=== PATIENT | female | born 1995 | race American Indian/Alaskan Native ===

== ENCOUNTER 2020-06-09 07:15 | Day surgery (SDC) | payer OTHER ==
--- NOTE | 2020-06-02 13:18 | History and Physical Report ---
History of Present Illness Date of examination: 06/02/20 Date of admission: 06/09/2020 Chief complaint: LEEP for moderate dysplasia History of present illness: 24 yo with known LSIL pap with subsequent SHIVANI-2/HSIL endo/ectocervical biopsies presenting for definitive surgical management via Loop electrosurgical excision procedure. Past History Past Surgical History: other (back surgery, elective ) IN HOME [employer] History: herpes Family/Genetic History: none Social history: no significant social history - Obstetrical History : 3 Hx # Term Pregnancies: 1 Spontaneous Abortions: 2 Number of Living Children: 1 Medications and Allergies Allergies Allergy/AdvReac Type Severity Reaction Status Date / Time strawberry AdvReac Intermediate Rash Verified 06/02/20 13:25 Home Medications Medication Instructions Recorded Confirmed Last Taken Type No Known Home Medications [No 06/02/20 06/02/20 Unknown History Reported Home Medications] Review of Systems All systems: negative (expect HPI) - Physical Exam Abdomen: Positive: normal appearance, normal bowel sounds Results All other labs normal. Assessment and Plan - Patient Problems (1) SHIVANI II (cervical intraepithelial neoplasia II) Current Visit: No Status: Acute Plan to address problem: To OR for loop electrosurgical excision procedure. Questions solicited and answered. Consented in the chart.
[~2020-06-09 07:15] MED LIST: BACTERIOSTATIC SODIUM CHLORIDE 0.9% 30 ML VIAL INFILTRATI ONE; LACTATED RINGERS 1,000 ML IV SCH; MIDAZOLAM 2 MG/2 ML INJ IV NR; ceFAZolin/Water 2 GM/20 ML 2 GM/20 ML SYRINGE IV NR
[2020-06-09] MEDS ORDERED: fentaNYL 100 MCG/2 ML INJ IV PRN (08:08)
[2020-06-09] MEDS ORDERED: KETOROLAC 30 MG/1 ML INJ IV PRN (08:08)
[2020-06-09] MEDS ORDERED: ONDANSETRON 4 MG/2 ML INJ IV PRN (08:08)
--- NOTE | 2020-06-09 08:09 | Anesthesia Consultation ---
Anesthesia Consult and Med Hx Date of service: 06/09/20 - Airway Anesthetic Teeth Evaluation: Good ROM Head & Neck: Adequate Mental/Hyoid Distance: Adequate Mallampati Class: Class I Intubation Access Assessment: Good - Pulmonary Exam CTA: Yes - Cardiac Exam Cardiac Exam: RRR - Pre-Operative Health Status ASA Pre-Surgery Classification: ASA1 Proposed Anesthetic Plan: General - Pulmonary Hx Smoking: No Hx Respiratory Symptoms: No - Cardiovascular System Hx Hypertension: No - Central Nervous System CVA: No - Gastrointestinal Hx Gastroesophageal Reflux Disease: No - Endocrine Hx Renal Disease: No Hx Liver Disease: No Hx Insulin Dependent Diabetes: No Hx Non-Insulin Dependent Diabetes: No Hx Thyroid Disease: No - Other Systems Hx Obesity: Yes (BMI 32) - Additional Comments Anesthesia Medical History Comments: No hx anesthetic complications.
--- NOTE | 2020-06-09 08:09 | Anesthesia Day of Surgery ---
Anesthesia Day of Surgery - Day of Surgery Patient Examined: Yes Patient H&P Reviewed: Yes Patient is NPO: Yes
[2020-06-09] MEDS ORDERED: POTASSIUM IODIDE/IODINE (LUGOLS) 30 ML TP ONE ×2 (08:39→09:37)
[2020-06-09] MEDS ORDERED: FERRIC SUBSULFATE TOPICAL SOLN 8 ML TP ONE ×2 (08:39→09:39)
[2020-06-09 08:48] LABS: Hematocrit 41.1 % (30.3-42.9); Hemoglobin 14.7 gm/dl (10.1-14.3); Mean Corpuscular HGB Conc 36 % (30-34); Mean Corpuscular Volume 92 fl (79-97); Platelet Count 314 K/mm3 (140-440); Red Blood Count 4.45 M/mm3 (3.65-5.03); Red Cell Distribution Width 13.2 % (13.2-15.2)
[2020-06-09] MEDS ORDERED: propofoL 200 MG/20 ML VIAL IV ONE (09:02)
[2020-06-09] MEDS ORDERED: ONDANSETRON 4 MG/2 ML INJ ONE (09:07)
[2020-06-09] MEDS ORDERED: fentaNYL 100 MCG/2 ML INJ ONE (09:07)
[2020-06-09] MEDS ORDERED: KETOROLAC 30 MG/1 ML INJ ONE (09:07)
[2020-06-09] MEDS ORDERED: dexAMETHasone 20 MG/5 ML VIAL ONE (09:07)
[2020-06-09] MEDS ORDERED: SODIUM CHLORIDE 0.9% IRR 1,500 ML BOTTLE IR ONE (09:37)
--- NOTE | 2020-06-09 09:56 | Procedure Note ---
Date of procedure: 06/09/20 Pre-op diagnosis: SHIVANI 2/moderate cervical dysplasia Post-op diagnosis: same Procedure: Preoperative diagnosis: Biopsy-proven cervical intraepithelial neoplasia (SHIVANI) 2 Postop postoperative diagnosis: Same Operation performed: 1. Exam under anesthesia 2. Loop electrosurgical excision procedure Surgeon: Catalina Becerra MD Estimated blood loss 25cc Intraoperative IV fluids not recorded Urine output 25cc Pathology specimens: 1. Loop left surgical excision procedure (LEEP) biopsy 2. LEEP Top-Hat Complications: none Disposition and condition: To the PACU in stable condition then discharged home Findings: 1. Small anteverted mobile uterus without any adnexal masses on EUA 2. Grossly normal-appearing cervix Statement medical necessity: This is a 24-year-old G 3 P 1021 patient, with a history of LSIL pap smear followed by suspected satisfactory colposcopy and biopsy proven CIN2. The procedural risk, benefits, indications and alternatives were thoroughly reviewed patient and she desired to proceed with surgical management. Description of operation: After obtaining informed consent the patient was taken to the operating room where satisfactory general endotracheal anesthesia was established. The patient was placed in the standard lithotomy position using candycane stirrups, ensuring proper positioning and cushioning to avoid injury. Exam under anesthesia was performed with the findings noted above. Straight catheterization of the bladder was performed. Patient was prepped and draped in the usual sterile fashion. Coated sidewall retractors were inserted into the anterior and posterior vaginal fornix to assist with visualization of the cervix. The cervix and upper vagina were coated with the Lugol's iodine and inspected for nonstaining areas. The entire transformation zone was visualized and there was a small circumferential nonstaining area around the cervical os. A LEEP was completed with a 20x12 mm loop electrode. A LEEP Top-Hat was performed with a 10x10 mm loop electrode. All specimens were sent to pathology. The biopsy site was rendered hemostatic with Bovie electrocautery with a 5 mm electrosurgical ball electrode and Monsel's solution was applied to the excisional base. The retractors were removed. The patient was returned to dorsal supine position. The patient tolerated procedure well, was extubated without difficulty and transferred to recovery in good condition. Sponge, needle and instrument counts are correct x2. There is no surgical or anesthetic complications. Anesthesia: GETA Surgeon: CATALINA BECERRA JR Estimated blood loss: minimal Urine output: 25 Pathology: list (1. LEEP, 2. top hat) Specimen disposition: to lab Condition: stable Disposition: same day
[2020-06-09] MEDS ORDERED: IBUPROFEN 600 MG TAB PO PRN (10:00)
[2020-06-09] MEDS ORDERED: oxyCODONE /ACETAMINOPHEN 5-325MG TAB PO PRN (10:00)
[2020-06-09 10:56] VITALS: BP 113/75
--- NOTE | 2020-06-09 11:27 | Post Anesthesia Evaluation ---
- Post Anesthesia Evaluation Patient Participated: Yes Airway Patent: Yes Stable Respiratory Function: Yes Nausea/Vomiting: No Temp > 96.8F: Yes Pain Manageable: Yes Adequeate Hydration: Yes Anesthesia Complications: No
== END 2020-06-09 11:10 | disposition home or self-care (01) ==
LOC: OR 07:15
PROVIDERS: ATTEND Obstetrics & Gynecology
DX: N87.1 Moderate cervical dysplasia (principal); K21.9 Gastro-esophageal reflux disease without esophagitis; E66.9 Obesity, unspecified; Z87.442 Personal history of urinary calculi; Z87.440 Personal history of urinary (tract) infections; Z98.890 Other specified postprocedural states; Z68.32 Body mass index [BMI] 32.0-32.9, adult
CPT/HCPCS: 36415; 57522; 81025; 85027; 88307; J1100; J1885; J2250; J2405; J2704; J3010; J7120